=== PATIENT | male | born 1990 | race Caucasian/White ===

== ENCOUNTER 2019-04-28 03:36 | Emergency (ER) | payer OTHER ==
[~2019-04-28] VITALS: Ht 182.9 cm; Wt 85.9 kg
[2019-04-28 03:37] VITALS: BP 145/91; TEMP 97.4
[2019-04-28 04:22] VITALS: PULSE 103
== END 2019-04-28 04:22 | disposition home or self-care (01) ==
LOC: COL.ER 03:36
DX: S83.004A Unspecified dislocation of right patella, initial encounter (principal); S62.502A Fracture of unspecified phalanx of left thumb, initial encounter for closed fracture; X50.1XXA Overexertion from prolonged static or awkward postures, initial encounter; Y92.009 Unspecified place in unspecified non-institutional (private) residence as the place of occurrence of the external cause
CPT/HCPCS: L1846